=== PATIENT | female | born 1960 | race Two or more races ===

== ENCOUNTER 2018-03-05 08:07 | Day surgery (SDC) | payer MEDICAID ==
[~2018-03-05 08:07] MED LIST: SEVOFLURANE 15 MIN
[2018-03-05] MEDS ORDERED: CEFAZOLIN 2 GM/50 ML (PMX) 50 ML IVPB (09:00)
[2018-03-05] MEDS ORDERED: SOD CHLORIDE 0.9% 1,000 ML IV (09:00)
[2018-03-05] MEDS ORDERED: CEFAZOLIN 1 GM INJ (14:25)
[2018-03-05] MEDS ORDERED: MEPERIDINE 100 MG INJ (14:25)
[2018-03-05] MEDS ORDERED: LIDOCAINE 2% (SDV) 5 ML INJ (14:25)
[2018-03-05] MEDS ORDERED: PROPOFOL 20 ML (14:25)
[2018-03-05] MEDS ORDERED: ONDANSETRON 4 MG INJ (14:26)
[2018-03-05] MEDS ORDERED: METOCLOPRAMIDE 10 MG INJ (14:26)
[2018-03-05] MEDS ORDERED: hydrALAzine 20 MG INJ IV (15:00)
[2018-03-05] MEDS ORDERED: FENTAnyl 50 MCG/ML VIAL IV ×2 (15:00)
[2018-03-05] MEDS ORDERED: MEPERIDINE 25 MG INJ IV (15:00)
[2018-03-05] MEDS ORDERED: LABETALOL HCL 20MG INJ IV (15:00)
[2018-03-05] MEDS ORDERED: HYDROmorphONE 1 MG/5 ML IV SYRINGE IV ×3 (15:00)
[2018-03-05] MEDS ORDERED: MIDAZOLAM 1 MG/ML 2 ML INJ IV (15:00)
[2018-03-05] MEDS ORDERED: OXYCODONE/ACETAMINOPHEN (5/325) TAB PO ×2 (15:00)
[2018-03-05] MEDS ORDERED: EPHEDrine SULFATE 50 MG/5 ML SYG IV (15:00)
[2018-03-05] MEDS ORDERED: DIPHENHYDRAMINE 50 MG INJ IV (15:00)
[2018-03-05] MEDS ORDERED: HYDROCODONE/APAP (7.5/325) TAB PO (15:30)
[2018-03-05] MEDS: FENTAnyl 50 MCG/ML VIAL IV (15:55)
[2018-03-05] MEDS: METOCLOPRAMIDE 10 MG INJ IV (16:21)
[2018-03-05] MEDS: ONDANSETRON 4 MG INJ IV (17:11)
== END 2018-03-05 17:58 | disposition home or self-care (01) ==
LOC: SDS 08:07
DX: D05.11 Intraductal carcinoma in situ of right breast (principal); I10 Essential (primary) hypertension; E78.00 Pure hypercholesterolemia, unspecified; E11.9 Type 2 diabetes mellitus without complications; E78.2 Mixed hyperlipidemia
CPT/HCPCS: 19301; 82962; 88307